=== PATIENT | female | born 1990 | race Two or more races ===

== ENCOUNTER 2021-08-21 06:10 | Inpatient (IN) | payer MEDICAID ==
[~2021-08-21] VITALS: Ht 162.6 cm; Wt 75.0 kg
[~2021-08-21 06:10] MED LIST: DOCU-109 PO; IBUP-1060 PO; OXYC1TAB15 PO
[2021-08-21 06:57] VITALS: BP 112/68
[2021-08-21] MEDS ORDERED: OXYTOCIN 30 UNIT/500 ML PREMIX 500 ML IV ONE (07:18)
[2021-08-21] MEDS ORDERED: 0.9 % SODIUM CHLORIDE 10 ML DISP.SYRIN. IV PRN ×2 (07:30→16:15)
[2021-08-21] MEDS ORDERED: BUTORPHANOL 2 MG/ML VIAL. IVP PRN (07:30)
[2021-08-21] MEDS ORDERED: LIDOCAINE 1% PF 30 ML VIAL. INJ PRN (07:30)
[2021-08-21] MEDS ORDERED: IV RINGERS,LACTATED 1000ML 1,000 ML IV SCH (07:30)
[2021-08-21] MEDS ORDERED: ACETAMINOPHEN 325 MG TABLET. PO PRN ×2 (07:30→16:15)
[2021-08-21] MEDS ORDERED: OXYTOCIN PREMIX 30 UNIT/500 ML NS BAG. IV ONE (07:30)
[2021-08-21] MEDS ORDERED: TERBUTALINE 1 MG/ML VIAL. SQ PRN (07:30)
[2021-08-21] MEDS ORDERED: OXYTOCIN 30 UNIT/500 ML PREMIX 500 ML IV PRN ×2 (07:30→16:15)
[2021-08-21 07:45] VITALS: BP 108/60
[2021-08-21 08:22] LABS: BASO % 0 % (0-3); EOS # 0.1 x10^3/uL (0.0-0.7); EOS % 1 % (0-3); HEMATOCRIT 40.7 % (36.0-47.0); HEMOGLOBIN 13.6 g/dL (12.0-15.5); LYMPH # 2.6 x10^3/uL (1.0-4.8); LYMPH % 24 % (24-48); MEAN CORPUSCULAR HEMOGLOBIN 30 pg (25-35); MEAN CORPUSCULAR HGB CONC 34 g/dL (31-37); MEAN CORPUSCULAR VOLUME 89 fL (79-100); MONO # 0.7 x10^3/uL (0.0-1.1); MONO % 7 % (0-9); NEUT # 7.4 x10^3/uL (1.8-7.7); NEUT % 68 % (31-73); PLATELET COUNT 249 x10^3/uL (140-400); RED BLOOD COUNT 4.57 x10^6/uL (3.50-5.40); RED CELL DISTRIBUTION WIDTH 13.5 % (11.5-14.5); WHITE BLOOD COUNT 10.8 x10^3/uL (4.0-11.0)
--- NOTE | 2021-08-21 09:44 | PDOC1 ---
VOCATIONAL SERVICES SPECIALIST H&P Date of Admission: Date of Admission: Aug 21, 2021 at 06:10 History of Present Illness: EDC: 07/16/21 LMP: 11/09/20 31y @ 40.5 by L=18 presents for scheduled indxn. The pt had a primary LTCS with her last delivery. The C/S was for arrest of decent. The baby ended up weighing 8 lb 13 oz. She presented with LOF at 38.5 wks. She desires a TOLAC. PMH: Denies PSH: Denies Meds: PNV All: NKDA OBHx: TC/S x 1 SH: no tob, no EtOH FH: noncontributory Allergies: Coded Allergies: No Known Drug Allergies (Unverified , 05/08/20) Physical Exam: Vital Signs: Vital Signs Date Time Temp Pulse Resp B/P (MAP) Pulse Ox O2 Delivery O2 Flow Rate FiO2 08/21/21 06:57 98.7 85 18 112/68 (83) 98 Room Air 98.7 PE: GENERAL: No apparent distress. Alert and oriented. HEENT: Head normocephalic, atraumatic. NECK: Supple LUNGS: Clear to auscultation. HEART: RRR, S1, S2 present, pulses intact ABDOMEN: Soft, positive bowel sounds. EXTREMITIES: No cyanosis or edema. NEUROLOGIC: Normal speech, normal tone PSYCHIATRIC: Normal affect, normal mood. SKIN: No ulceration. FHT: 130s +acels/no decels/mLTV [place]: 8 min SVE: 4/75/-2 Labs: Laboratory Tests Test 08/21/21 06:44 08/21/21 07:45 White Blood Count 10.8 x10^3/uL (4.0-11.0) Red Blood Count 4.57 x10^6/uL (3.50-5.40) Hemoglobin 13.6 g/dL (12.0-15.5) Hematocrit 40.7 % (36.0-47.0) Mean Corpuscular Volume 89 fL (79-100) Mean Corpuscular Hemoglobin 30 pg (25-35) Mean Corpuscular Hemoglobin Concent 34 g/dL (31-37) Red Cell Distribution Width 13.5 % (11.5-14.5) Platelet Count 249 x10^3/uL (140-400) Neutrophils (%) (Auto) 68 % (31-73) Lymphocytes (%) (Auto) 24 % (24-48) Monocytes (%) (Auto) 7 % (0-9) Eosinophils (%) (Auto) 1 % (0-3) Basophils (%) (Auto) 0 % (0-3) Neutrophils # (Auto) 7.4 x10^3/uL (1.8-7.7) Lymphocytes # (Auto) 2.6 x10^3/uL (1.0-4.8) Monocytes # (Auto) 0.7 x10^3/uL (0.0-1.1) Eosinophils # (Auto) 0.1 x10^3/uL (0.0-0.7) Basophils # (Auto) 0.0 x10^3/uL (0.0-0.2) Treponema pallidum Antibody Nonreactive (Nonreactive) SARS-CoV-2 Antigen (Rapid) Negative (NEGATIVE) Laboratory Tests 08/21/21 06:44 Laboratory Tests 08/21/21 06:44 Assessment & Plan: A/P 31y @ 40.5 by L=18 1.) Indxn on Pit 2.) Prev C/S x 1 - desires TOLAC 3.) H/o cholestasis with 1st 4.) TDAP given 05/29/21 5.) Covid vaccine (JJ) given 11/19/20 6.) Flu vaccine given 05/04/21 7.) Fetus cat I FHT 8.) GBS neg CHARANJIT SOLIS MD Aug 21, 2021 09:44
[2021-08-21] MEDS ORDERED: fentaNYL PF VIAL 100 MCG/2 ML VIAL EPID ONE (12:15)
[2021-08-21] MEDS ORDERED: ePHEDrine PF IN SALINE 50 MG/10 ML SYRINGE. IV PRN (12:15)
[2021-08-21] MEDS ORDERED: ONDANSETRON PF 4 MG/2 ML VIAL. IV PRN (12:15)
[2021-08-21] MEDS ORDERED: IV RINGERS,LACTATED 1000ML 1,000 ML IV ONE (12:15)
[2021-08-21] MEDS ORDERED: NALOXONE 0.4 MG/ML VIAL. IV PRN (12:15)
[2021-08-21] MEDS ORDERED: L&D EPIDURAL SYRINGE 50 ML EPID PRN (12:15)
[2021-08-21] MEDS ORDERED: ROPIVacaine 0.2% PF 10 ML VIAL. ONE ×2 (12:18→12:30)
[2021-08-21] MEDS ORDERED: L&D EPIDURAL SYRINGE 50 ML ONE (12:18)
[2021-08-21] MEDS ORDERED: L&D EPIDURAL 50 ML SYRINGE. ONE (12:30)
--- NOTE | 2021-08-21 16:03 | PDOC4 ---
VAGINAL DELIVERY DATE DATE: 08/21/21 TIME: 16:02 TIME Patient delivered a viable female over intact perineum at 1531. Wt 9 lb 1 oz. Apgars 8/9. Placenta delivered spontaneously, intact with 3VC. A digital rectal exam was performed to determine if the anal sphincter was intact. There appeared to be a partial tear in the external sphincter. At that point, the gloves were changed. The free edges of the sphincter were grasped with Allis clamps. The edges were brought together with 4 figure of eight stitches of 3'0 vicryl. The 1st stitch being placed posterior, f ollowed by a stitch being placed interiorly, followed by a stitch superiorly, and finally placing a stitch anteriorly. Once the sphincter was reenforced, the 2nd degree aspect of the laceration was repaired in typical fashion with 2-0 Vicryl. Good hemostasis was noted. 20 U of Pitocin were infused with IVFs. EBL was 400 mL. WEIGHT Weight [ ] CHARANJIT SOLIS MD Aug 21, 2021 16:03
[2021-08-21] MEDS ORDERED: MAGNESIUM HYDROXIDE 2,400 MG/30 ML ORAL.SUSP. PO PRN (16:15)
[2021-08-21] MEDS ORDERED: ZOLPIDEM 5 MG TABLET. PO PRN (16:15)
[2021-08-21] MEDS ORDERED: MAG HYDROX/ALUMINUM HYD/SIMETH 30 ML ORAL.SUSP PO PRN (16:15)
[2021-08-21] MEDS ORDERED: diphenhydrAMINE HCL 25 MG CAPSULE PO PRN (16:15)
[2021-08-21] MEDS ORDERED: oxyCODONE/APAP 5/325 1 TAB TABLET PO PRN (16:15)
[2021-08-21] MEDS ORDERED: MMR per PROTOCOL. MC PRN (16:15)
[2021-08-21] MEDS ORDERED: BENZOCAINE 20% TOPICAL AEROSOL SPRAY 57GM CAN. TP PRN (16:15)
[2021-08-21] MEDS ORDERED: PHENYLEPH/MINERAL OIL/PETROLAT RECTAL OINTMENT TUBE. RC PRN (16:15)
[2021-08-21] MEDS ORDERED: TDaP (BOOSTRIX) per PROTOCOL. MC PRN (16:15)
[2021-08-21] MEDS ORDERED: SIMETHICONE 80 MG TAB.CHEW PO PRN (16:15)
[2021-08-21] MEDS ORDERED: HYDROCORTISONE 1% TOPICAL OINTMENT 30GM TUBE. TP PRN (16:15)
[2021-08-21] MEDS: IBUPROFEN 400 MG TABLET. PO PRN (18:20)
[2021-08-21 19:45] VITALS: BP 108/60
[2021-08-22] MEDS: IBUPROFEN 400 MG TABLET. PO PRN ×3 (00:29→21:08)
[2021-08-22 00:30] VITALS: BP 107/57
[2021-08-22 04:30] VITALS: BP 105/56
[2021-08-22 07:25] LABS: HEMATOCRIT 32.8 % (36.0-47.0); HEMOGLOBIN 10.9 g/dL (12.0-15.5); RED BLOOD COUNT 3.68 x10^6/uL (3.50-5.40); RED CELL DISTRIBUTION WIDTH 13.5 % (11.5-14.5); WHITE BLOOD COUNT 10.9 x10^3/uL (4.0-11.0)
[2021-08-22] MEDS ORDERED: FERROUS SULFATE 325 MG TABLET. PO SCH (08:00)
[2021-08-22] MEDS ORDERED: PHENYLEPHRINE in 0.9% NACL PF 1 MG/10 ML SYRINGE. IV ONE (10:00)
[2021-08-22] MEDS ORDERED: KETAMINE HCL IN NACL, ISO-OSM 50 MG/5 ML SYRINGE ONE (10:09)
[2021-08-22] MEDS ORDERED: PROPOFOL 10 MG/ML (20ML) VIAL. IV ONE (10:10)
[2021-08-22] MEDS ORDERED: MORPHINE PF 10 MG/10 ML AMPUL. ONE (10:21)
--- NOTE | 2021-08-22 11:37 | PDOC ---
DESK MAKER PROGRESS NOTE Date of Service: DATE: 08/22/21 TIME: 11:35 Subjective: Doing well. Pain well managed with PO meds. FOB supportive at bedside. Tolerates activity, diet, and voiding without difficulty. Reports mild bilateral thigh discomfort/ache. Otherwise denies complaints. Objective: Objective: Afebrile, VSS. FF @ U/1, scant lochia. Abdomen soft/NT. No edema. Vital Signs: Vital Signs Date Time Temp Pulse Resp B/P (MAP) Pulse Ox O2 Delivery O2 Flow Rate FiO2 08/21/21 19:45 98.8 73 18 108/60 (76) 98 Room Air 98.8 Vital Signs Date Time Temp Pulse Resp B/P (MAP) Pulse Ox O2 Delivery O2 Flow Rate FiO2 08/22/21 04:30 97.7 72 18 105/56 (72) 97 Room Air 97.7 Labs: Laboratory Tests Test 08/22/21 06:35 White Blood Count 10.9 x10^3/uL (4.0-11.0) Red Blood Count 3.68 x10^6/uL (3.50-5.40) Hemoglobin 10.9 g/dL (12.0-15.5) L Hematocrit 32.8 % (36.0-47.0) L Mean Corpuscular Volume 89 fL (79-100) Mean Corpuscular Hemoglobin 30 pg (25-35) Mean Corpuscular Hemoglobin Concent 33 g/dL (31-37) Red Cell Distribution Width 13.5 % (11.5-14.5) Platelet Count 211 x10^3/uL (140-400) Laboratory Tests 08/22/21 06:35 Laboratory Tests 08/22/21 06:35 Physical Exam: GENERAL: No apparent distress. Alert and oriented. HEENT: Head normocephalic, atraumatic. NECK: Supple LUNGS: Clear to auscultation. HEART: RRR, S1, S2 present, pulses intact ABDOMEN: Soft, positive bowel sounds. EXTREMITIES: No cyanosis or edema. NEUROLOGIC: Normal speech, normal tone PSYCHIATRIC: Normal affect, normal mood. SKIN: No ulceration. Assessment & Plan: PPD # 1, continue routine PP care. Anticipate d/c home tomorrow. ELAINE DOMINGUEZ CNM Aug 22, 2021 11:37
[2021-08-22 11:45] VITALS: BP 105/56
[2021-08-22] MEDS: PRENATAL MULTIVITAMIN TABLET. PO SCH (11:45)
[2021-08-22] MEDS: DOCUSATE SODIUM 100 MG CAPSULE. PO PRN (11:45)
[2021-08-22 20:45] VITALS: BP 100/59
[2021-08-23 04:50] VITALS: BP 97/54
[2021-08-23 08:20] VITALS: BP 112/66
[2021-08-23] MEDS: DOCUSATE SODIUM 100 MG CAPSULE. PO PRN (08:29)
[2021-08-23] MEDS: PRENATAL MULTIVITAMIN TABLET. PO SCH (08:29)
[2021-08-23] MEDS: IBUPROFEN 400 MG TABLET. PO PRN (08:29)
[2021-08-23] MEDS ORDERED: DOCU-109 PO (10:20)
[2021-08-23] MEDS ORDERED: IBUP-1060 PO (10:20)
--- NOTE | 2021-08-23 13:55 | PDOC ---
TICKETING AGENT PROGRESS NOTE Date of Service: DATE: 08/23/21 TIME: 13:54 Subjective: Pt with good pain control. Justen PO. Voiding. Minimal lochia. Objective: Vital Signs: Vital Signs Date Time Temp Pulse Resp B/P (MAP) Pulse Ox O2 Delivery O2 Flow Rate FiO2 08/22/21 11:45 98.8 78 20 105/56 (72) 96 98.8 08/22/21 20:45 Room Air Vital Signs Date Time Temp Pulse Resp B/P (MAP) Pulse Ox O2 Delivery O2 Flow Rate FiO2 08/23/21 08:20 98.7 91 20 112/66 (81) 97 Room Air 98.7 Physical Exam: GENERAL: No apparent distress. Alert and oriented. HEENT: Head normocephalic, atraumatic. NECK: Supple LUNGS: Clear to auscultation. HEART: RRR, S1, S2 present, pulses intact ABDOMEN: Soft, positive bowel sounds. EXTREMITIES: No cyanosis or edema. NEUROLOGIC: Normal speech, normal tone PSYCHIATRIC: Normal affect, normal mood. SKIN: No ulceration. FFNT below umb No C/C/E Assessment & Plan: A/P 31y PPD #2 s/p 1.) PP doing well 2.) Hgb 13.6 -> 10.9 3.) TDAP given 05/29/21 4.) Covid vaccine (JJ) given 11/19/20 5.) Flu vaccine given 05/04/21 6.) D/c home CHARANJIT SOLIS MD Aug 23, 2021 13:55
[2021-08-23 14:00] VITALS: BP 111/63
--- NOTE | 2021-08-23 14:30 | NUR ---
Pt. d/c to home per order with family. No questions verbalized over d/c instructions. Copies of instructions given in Khmer. Giving Officer phone used #[phone]
--- NOTE | 2021-08-25 12:58 | DS ---
DATE OF DISCHARGE: 08/23/2021 ADMISSION DIAGNOSES: 1. Intrauterine at 40 weeks and 5 days by last menstrual period equal to an 18-week ultrasound. 2. Induction of labor. 3. Previous section x 1, desires trial of labor. 4. History of cholestasis of . 5. Status post tetanus, diphtheria and acellular pertussis. 6. Status post COVID vaccine. 7. Status post flu vaccine. 8. Group B Streptococcus negative. DISCHARGE DIAGNOSES: 1. Intrauterine at 40 weeks and 5 days by last menstrual period equal to an 18-week ultrasound. 2. Induction of labor. 3. Previous section x 1, desires trial of labor. 4. History of cholestasis of . 5. Status post tetanus, diphtheria and acellular pertussis. 6. Status post COVID vaccine. 7. Status post flu vaccine. 8. Group B Streptococcus negative. 9. COVID positive on screen. PROCEDURE: Vaginal after section. BRIEF HOSPITAL COURSE: The patient is a 31-year-old 2, para 1-0-0-1 who presented to Labor and Delivery at 40 weeks and 5 days by LMP equal to an 18-week ultrasound for a scheduled induction. The patient had a primary with her first , the for arrest of descent. The patient ended up having an 8-pound 13-ounce baby. When the patient presented on this occasion, she was already found to be 4 cm dilated, she was started on Pitocin and the patient ultimately delivered later that afternoon by vaginal delivery. See delivery note for full detail. By day #2, the patient was meeting all discharge criteria and subsequently discharged home. Of note, the patient's hemoglobin on admission was 13.6 and after delivery, it was found to be 10.9. DISCHARGE INSTRUCTIONS: The patient was told not to lift anything greater than 20 pounds, have pelvic rest for [address] on narcotics. CALL IF: The patient was to call if she had fevers, chills, nausea, vomiting, abdominal pain or any additional questions or concerns. FOLLOWUP APPOINTMENT: The patient was to follow up on 10/05/2021 at 2:00 p.m. for a appointment. DISCHARGE MEDICATIONS: The patient was given a prescription for Motrin 800 mg, 30 pills and Colace 100 mg, [address]: Jeremías TID: [id number]
== END 2021-08-23 14:30 | disposition home or self-care (01) | DRG 805 ==
LOC: 3 SO LND 06:10
PROVIDERS: ADMIT Obstetrics & Gynecology; ATTEND Obstetrics & Gynecology
PROC: 10E0XZZ Delivery of Products of Conception, External Approach (ICD-10-PCS; principal; 2021-08-21)
PROC: 0KQM0ZZ Repair Perineum Muscle, Open Approach (ICD-10-PCS; 2021-08-21)
PROC: 3E033VJ Introduction of Other Hormone into Peripheral Vein, Percutaneous Approach (ICD-10-PCS; 2021-08-21)
DX: O98.52 Other viral diseases complicating childbirth (principal); U07.1 COVID-19; Z37.0 Single live birth; O70.1 Second degree perineal laceration during delivery; Z3A.40 40 weeks gestation of pregnancy
CPT/HCPCS: 36415; 85025; 85027; 86592; 86850; 86900; 86901; 87426; A6258; C1755; G0378; J2274; J2370; J2590; J2704; J2795; J3010; J7120; U0003

== ENCOUNTER 2021-09-22 10:51 | Emergency (ER) | payer SELFPAY ==
[~2021-09-22] VITALS: Ht 162.6 cm; Wt 66.0 kg
[2021-09-22] MEDS ORDERED: ACETAMINOPHEN 325 MG TABLET. PO ONE (11:15)
[2021-09-22] MEDS ORDERED: IV NORMAL SALINE 1000ML BAG 1,000 ML IV SCH (11:15)
[2021-09-22 11:19] LABS: BASO # 0.1 x10^3/uL (0.0-0.2); BASO % 1 % (0-3); EOS % 0 % (0-3); HEMATOCRIT 42.6 % (36.0-47.0); HEMOGLOBIN 13.9 g/dL (12.0-15.5); LYMPH # 0.7 x10^3/uL (1.0-4.8); LYMPH % 6 % (24-48); MEAN CORPUSCULAR HEMOGLOBIN 29 pg (25-35); MEAN CORPUSCULAR HGB CONC 33 g/dL (31-37); MEAN CORPUSCULAR VOLUME 87 fL (79-100); MONO # 0.7 x10^3/uL (0.0-1.1); MONO % 6 % (0-9); NEUT # 10.7 x10^3/uL (1.8-7.7); NEUT % 87 % (31-73); PLATELET COUNT 243 x10^3/uL (140-400); RED BLOOD COUNT 4.88 x10^6/uL (3.50-5.40); RED CELL DISTRIBUTION WIDTH 12.4 % (11.5-14.5); WHITE BLOOD COUNT 12.2 x10^3/uL (4.0-11.0)
[2021-09-22 11:29] LABS: BARBITURATES NEG (NEG); BENZODIAZEPINES NEG (NEG); CANNABINOIDS NEG (NEG); COCAINE NEG (NEG); METHADONE NEG (NEG); OPIATES NEG (NEG); PHENCYCLIDINE NEG (NEG)
[2021-09-22 11:30] LABS: AMPHETAMINE/METHAMPHETAMINE NEG (NEG)
[2021-09-22 11:31] LABS: CALCIUM 8.3 mg/dL (8.5-10.1); CREATININE 0.7 mg/dL (0.6-1.0); GFR 98.3; POTASSIUM 3.5 mmol/L (3.5-5.1)
[2021-09-22 11:33] LABS: U PREG PATIENT NEGATIVE (NEG)
[2021-09-22 11:34] LABS: BILIRUBIN,URINE NEGATIVE (NEG); CLARITY,URINE CLEAR; COLOR,URINE STRAW; NITRITE,URINE NEGATIVE (NEG); PROTEIN,URINE TRACE mg/dL (NEG-TRACE); UROBILINOGEN,URINE 0.2 mg/dL (0.2 mg/dL)
[2021-09-22 11:35] LABS: BACTERIA,URINE MODERATE /HPF (0-FEW)
[2021-09-22 11:37] LABS: ALBUMIN 4.2 g/dL (3.4-5.0); ALBUMIN/GLOBULIN RATIO 1.3 (1.0-1.7); TOTAL BILIRUBIN 0.5 mg/dL (0.2-1.0); TOTAL PROTEIN 7.5 g/dL (6.4-8.2)
--- NOTE | 2021-09-22 11:44 | PHYS DOC ---
Past Medical History Past Surgical History: Smoking Status: Never Smoker Alcohol Use: None General Adult EDM: Chief Complaint: CHEST PAIN-NON CARDIAC NATURE HPI: HPI: 31yo F PMH cholestasis of (1st ) is the ED with complaints of fever, nausea and vomiting with "I have pain on the outside of my right breast that started yesterday morning," chills started this morning. Reports she is 4 weeks and is actively breast-feeding. Had unco mplicated vaginal delivery. Denies any tobacco or alcohol use. Takes no routine prescribed medications. Is no known drug allergies. Has been vaccinated for COVID and influenza. Denies any associated shortness of breath, cough, sore throat, diarrhea, flank pain, abnormal vaginal discharge, vaginal bleeding or pelvic pain. Does report dysuria on review of systems. States she has no pain underneath the skin of her breast. Patient is Irish-speaking and presents to the ED with her friend. Segment Producer phone used ID code [id number]. Review of Systems: Review of Systems: Constitutional: Denies fever or chills. [] Eyes: Denies change in visual acuity. [] HENT: Denies nasal congestion or sore throat. [] Respiratory: Denies hemoptysis or increased work of breathing or dyspnea Cardiovascular: Denies chest pain or edema. [] GI: Denies bloody stools or diarrhea. [] : Denies hematuria or vaginal bleeding Musculoskeletal: Denies back pain or joint pain. [] Integument: Denies blistering lesions or diaphoresis Neurologic: Denies headache, focal weakness or sensory changes. [] Endocrine: Denies polyuria or polydipsia. [] Lymphatic: Denies swollen glands. [] Psychiatric: Denies depression or anxiety. [] Heart Score: C/O Chest Pain: No Risk Factors: Risk Factors: DM, Current or recent (<one month) smoker, HTN, HLP, family history of CAD, obesity. Risk Scores: Score 0 - 3: 2.5% MACE over next 6 weeks - Discharge Home Score 4 - 6: 20.3% MACE over next 6 weeks - Admit for Clinical Observation Score 7 - 10: 72.7% MACE over next 6 weeks - Early Invasive Strategies Current Medications: Current Medications Medications (Trade) Dose Ordered Sig/Evelin Start Time Stop Time Status Last Admin Dose Admin Acetaminophen (Tylenol) 650 mg 1X ONCE 09/22/21 11:15 09/22/21 11:18 DC Sodium Chloride 1,000 ml @ 1,000 mls/hr Q1H 09/22/21 11:15 09/22/21 12:14 Allergies: Allergies: Allergies Coded Allergies Type Severity Reaction Last Updated Verified No Known Drug Allergies 05/08/20 No Physical Exam: PE: Constitutional: Febrile, no acute distress, non-toxic appearance. HENT: Normocephalic, atraumatic, Eyes: EOMI, conjunctiva normal, no discharge. Neck: Normal range of motion, supple, Cardiovascular: S1/2 present, tachycardic, 9 o'clock position of nipple erythematous/swollen/indurated with red streaks-no fluctuance Lungs & Thorax: Speaking in full sentences, bilateral equal chest rise, no tachypnea or increased work of breathing Abdomen: soft, no tenderness, Skin: Warm, dry, no erythema, no rash. [] Back: No tenderness, no CVA tenderness. [] Extremities: No tenderness, no cyanosis, no lower extremity edema Neurologic: Alert and oriented X 3, normal motor function, normal sensory function, no focal deficits noted. [] Psychologic: Affect normal, judgement normal, mood normal. [] Current Patient Data: Labs: Laboratory Tests Test 09/22/21 10:55 Urine Opiates Screen Neg (NEG) Urine Methadone Screen Neg (NEG) Urine Barbiturates Neg (NEG) Urine Phencyclidine Screen Neg (NEG) Urine Amphetamine/Methamphetamine Neg (NEG) Urine Benzodiazepines Screen Neg (NEG) Urine Cocaine Screen Neg (NEG) Urine Cannabinoids Screen Neg (NEG) Urine Ethyl Alcohol Neg (NEG) Vital Signs: Vital Signs Date Time Temp Pulse Resp B/P (MAP) Pulse Ox O2 Delivery O2 Flow Rate FiO2 09/22/21 10:54 102.4 117 18 111/63 (79) 98 Room Air 102.4 EKG: EKG: Sinus tachycardia 122 bpm, no axis deviation, normal intervals, T wave inversion in 2, 3, aVF, V3 through V6, no ST elevation or ST depression, no active chest pressure pain or tightness Radiology/Procedures: Radiology/Procedures: IMAGING REPORT Signed PATIENT: CLYDE MARREROCOUNT: [id number] : 1990 LOCATION: ER AGE: 31 SEX: F EXAM STATUS: PRE ER ORD. PHYSICIAN: CORNELIUS LLOYD DO REASON: fever, cp PROCEDURE: PORTABLE CHEST 1V XR CHEST 1V History: Reason: fever, cp / Spl. Instructions: / History: Comparison: None. Findings: Mild ill-defined bibasilar opacities. No pleural effusion. No pneumothorax. Normal heart size. Impression: 1. Mild bibasilar ill-defined opacities, may represent atelectasis or developing infiltrates. Electronically signed by: Rocael Damon DO (09/22/2021 11:50 AM) [id number] DICTATED and SIGNED BY: ROCAEL DAMON DO DATE: 09/22/21 1150 Course & Med Decision Making: Course & Med Decision Making Pertinent Labs and Imaging studies reviewed. (See chart for details) Concern for early acute mastitis of right breast with no fluctuant mass/palpable abscess. Patient later afebrile with mild leukocytosis, no left shift. Patient hemodynamically stable and tachycardia resolved after IV fluids. Will discharge on antibiotics with follow-up in 2 days for reevaluation. Will discharge home with strict ED return precautions were given for worsening fever, dehydration, confusion or worsening rash. Encouraged urgent outpatient follow- up with PMD in 2 days for reevaluation. Life-threatening processes were considered but are low suspicion at this time, given history, physical exam and ED workup. Pt was educated on all prescription medications and adverse effects. All patient's questions were answered and pt was stable at time of discharge. Life/limb-threatening differential includes but is not limited to, erythema multiforme, garsia-rani syndrome, toxic epidermal necrolysis, staphylococcal scalded skin syndrome, necrotizing fasciitis/myositis/cellulitis, purpura fulminans, heparin or warfarin induced skin necrosis, angioedema, anaphylaxis drug rash, disseminated intravascular coagulation, disseminated gonococcal disease, vasculitis, septicemia, petechial disorder or coagulopathy, viral exanthem, Kawasaki's disease or life-threatening burn requiring burn center management or escharotomy. I have spoken with the patient and/or caregivers. I explained the patient's condition, diagnoses and treatment plan based on the information available to me at this time. I have answered the patient and/or caregiver's questions and addressed any concerns. The patient and/or caregivers have a good understanding of patient's diagnosis, condition and treatment plan as can be expected at this point. Vital signs have been stable. Patient's condition is stable and appropriate for discharge from the emergency department. Patient will pursue further outpatient evaluation with primary care physician or other designated or consulting physician as outlined in the discharge instructions. The patient and/or caregivers are agreeable to this plan of care and follow-up instructions have been explained in detail. The patient and/or caregivers have received these instructions in written form and have expressed an understanding of the discharge instructions. The patient and/or caregivers are aware that any significant change of condition or worsening of symptoms should prompt immediate return to this or the closest emergency department or call to 911. Wizzgo Disclaimer: DragXING Disclaimer: This electronic medical record was generated, in whole or in part, using a voice recognition dictation system. Departure Departure Impression: Primary Impression: Mastitis, right, acute Disposition: HOME / SELF CARE / HOMELESS Condition: STABLE Referrals: CHARANJIT DAMON MD (PCP) Seguimiento en 2 kathleen para control de herida Patient Instructions: , Mastitis, Mastitis Additional Instructions: INSTRUCCIONES GENERALES DE MYNOR DEL DEPARTAMENTO DE EMERGENCIA Pernell por venir al Departamento de Emergencias (ED) de [facility] matthew y confiando en nosotros con buckner cuidado. Confiamos en que tuviste margie experiencia positiva en nuestra Emergencia Departamento. Si desea hablar con la gerencia del departamento, puede llamar al Director al [phone]. SANJUANITA INSTRUCCIONES DE SEGUIMIENTO SON LAS SIGUIENTES: 1. Tiene un mdico privado? Si no tiene un mdico privado, por favor pida rhonda lista de recursos de mdicos o clnicas que pueden ayudarlo con la atencin de seguimiento. 2. El Mdico de Urgencias cárdenas interpretado sanjuanita radiografas. El especialista en bonnie X tambin revisarlos. Si hay un cambio en los hallazgos, se le notificar en 48 horas cuando al todo posible. 3. Se cárdenas realizado margie prueba de laboratorio o cultivo, se revisarn sanjuanita resultados y se le notificado si necesita un cambio en el tratamiento. INSTRUCCIONES E INFORMACIN ADICIONALES: 1. Buckner atencin hoy cárdenas sido supervisada por un mdico especialmente capacitado en emergencias cuidado. Muchos problemas requieren ms de margie evaluacin para un diagnstico completo y tratamiento. Le recomendamos que programe buckner aureliano de seguimiento segn lo recomendado para garantizar el tratamiento completo de buckner enfermedad o lesin. Si no puede obtener un seguimiento atencin y contina teniendo un problema, o si buckner condicin empeora, le recomendamos que volver al servicio de urgencias. 2. No podemos determinar buckner condicin de forma higgins por telfono ni podemos nadiya buenos consejos mdicos por telfono. Por estas razones de seguridad, si llama para recibir atencin mdica consejo, le pediremos que venga al servicio de urgencias para margie evaluacin adicional. 3. Si tiene alguna pregunta con respecto a estas instrucciones de mynor, llame al ED al [phone]. INFORMACIN DE SEGURIDAD: En inters de la seguridad, el bienestar y la prevencin de lesiones; te animamos a que lleves tu cinturn de seguridad, si fuma; fumando bastante, y alentamos a la prisca a usar un alcira protector para andar en bicicleta y otros eventos deportivos que presentan un mayor riesgo de lesiones en la adria. SI SANJUANITA SNTOMAS EMPEORAN O SE DESARROLLAN NUEVOS SNTOMAS, O SI TIENE PREOCUPACIONES SOBRE BUCKNER CONDICIN; O SI BUCKNER CONDICIN EMPEORA MIENTRAS ESPERA BUCKNER AURELIANO DE SEGUIMIENTO; CUALQUIERA COMUNQUESE CON BUCKNER MDICO DE ATENCIN PRIMARIA, EL MDICO CUYO NOMBRE Y NMERO LE DIERON, O REGRESE AL ED INMEDIATAMENTE. Scripts Dicloxacillin Sodium (DICLOXACILLIN SODIUM) 500 Mg Capsule 1 CAP PO QID for 10 Days, #40 CAP Prov: CORNELIUS LLOYD DO 09/22/21 CORNELIUS LLOYD DO Sep 22, 2021 11:44
[2021-09-22] MEDS ORDERED: ONDANSETRON PF 4 MG/2 ML VIAL. IVP ONE (11:45)
[2021-09-22] MEDS ORDERED: IV NORMAL SALINE 1000ML BAG 1,000 ML IV ONE (11:45)
--- NOTE | 2021-09-22 11:53 | RAD ---
XR CHEST 1V History: Reason: fever, cp / Spl. Instructions: / History: Comparison: None. Findings: Mild ill-defined bibasilar opacities. No pleural effusion. No pneumothorax. Normal heart size. Impression: 1. Mild bibasilar ill-defined opacities, may represent atelectasis or developing infiltrates. Electronically signed by: Rocael Damon DO (09/22/2021 11:50 AM) [id number]
[2021-09-22 12:17] LABS: INFLUENZA A PATIENT NEGATIVE (NEGATIVE); INFLUENZA B PATIENT NEGATIVE (NEGATIVE)
[2021-09-22 15:05] VITALS: BP 92/51
[2021-09-22] MEDS ORDERED: DICL500C PO (15:15)
--- NOTE | 2021-09-22 15:54 | EKG ---
[facility] [address] [place] [address] Test Date: 2021-09-22 Test Time: 11:04:47 Pat Name: RENA MARRERO Department: Room: Gender: F Testing Manager: : 1990 Requested By: CORNELIUS LLOYD Order Number: [id number] Reading MD: Reggie Gustafson Measurements Intervals [place] Rate: 122 P: 50 HI: 152 QRS: 12 QRSD: 58 T: -41 QT: 304 QTc: 434 Interpretive Statements SINUS TACHYCARDIA NON SPECIFIC ST-T WAVE CHANGES Electronically Signed On 09-24-2021 15:08:57 CDT by Reggie Gustafson
== END 2021-09-22 15:40 | disposition home or self-care (01) ==
LOC: ER 10:51
DX: O91.22 Nonpurulent mastitis associated with the puerperium (principal); Z20.822 Contact with and (suspected) exposure to COVID-19
CPT/HCPCS: 36415; 71045; 80053; 80307; 81001; 81025; 83605; 83690; 83735; 83880; 84484; 85025; 87040; 87086; 87428; 93005; 96361; 96374; 99285; C9803; J2405; J7030; U0003